=== PATIENT | female | born 1950 | race Caucasian/White ===

== ENCOUNTER 2023-08-21 12:25 | Observation (INO) | payer OTHER ==
--- OUTSIDE RECORDS SUMMARY | 2023-08-21 12:28 | XMS REPORT | Continuity of Care Document ---
:1950 Author Organization [facility] t Address [address] [place] [address] [place] [id number] Care Team Providers Name Role Phone Brian Keller Attending Clinician Unavailable Jacquelyn Larry Attending Clinician Unavailable Brian Keller Admitting Clinician Unavailable Jacquelyn Larry Admitting Clinician Unavailable Payers Payer Name Policy Type Policy Number Effective Date Expiration Date S ource Problems This patient has no known problems. Allergies, Adverse Reactions, Alerts This patient has no known allergies or adverse reactions. Medications This patient has no known medications. Procedures This patient has no known procedures. Encounters Start End Encounter Admission Attending Care Care Encounter Source Date/Time Date/Time Type Type Clinicians Facility Department ID 2023-05-09 2023-05-09 Outpatient ELLIE Keller BRANDEE RUIZ [id number] [facility] 09:06:00 09:06:00 Brian 59 [facility] 2022-05-03 2022-05-03 Outpatient ELLIE Krishna BRANDEE RUIZ [id number] [facility] 12:00:00 12:00:00 Brian 18 [facility] 2021-04-27 2021-04-27 Outpatient ELLIE Keller BRANDEE RUIZ [id number] [facility] 12:36:00 12:36:00 Brian 43 [facility] 2020-04-23 2020-04-23 Outpatient JOESPH Carver [id number] [facility] 12:00:00 12:00:00 Jacquelyn Crawley [facility] Results This patient has no known results.
[2023-08-21 13:10] LABS: Absolute Lymphocytes (CBC) 2.1 K/uL (0.7-4.9); Hematocrit 39.7 % (36.0-45.0); Lymphocytes % 35.5 % (15.3-44.8); MCV 90.6 fL (80-100); MPV 7.4 fL (7.6-11.3); Platelets 231 thou/uL (152-406); RBC Red Blood Cell Count 4.39 M/uL (3.86-4.86)
[2023-08-21] MEDS ORDERED: METOCLOPRAMIDE 10 MG/2mL INJ ONE (13:20)
[2023-08-21] MEDS ORDERED: DIPHENHYDRAMINE 50 MG/ML VIAL ONE (13:20)
[2023-08-21] MEDS ORDERED: NA CHLORIDE 0.9% 1,000 ML ONE (13:20)
[2023-08-21 13:33] LABS: Albumin 3.5 g/dL (3.4-5.0); Bilirubin Total 0.4 mg/dL (0.2-1.0); Protein, Total 7.7 g/dL (6.4-8.2)
[2023-08-21 14:05] LABS: Specific Gravity 1.009 (1.005-1.030); Urine Bilirubin NEGATIVE (Negative); Urine Blood Negative (Negative); Urine Clarity Clear (Clear); Urine Color Colorless (Yellow); Urine Glucose NEGATIVE (Negative); Urine Protein NEGATIVE (Negative); Urine Urobilinogen Normal (Normal)
--- NOTE | 2023-08-21 14:13 | RAD REPORT ---
EXAM DESCRIPTION: CT - Head Brain Wo Cont - 08/21/2023 1:11 pm CLINICAL HISTORY: DIZZINESS COMPARISON: Head angio dated 08/21/2023; Neck Angio dated 08/21/2023 TECHNIQUE: Noncontrast head CT images were obtained without IV contrast. Multiplanar reformats were generated and reviewed. All CT scans are performed using dose optimization technique as appropriate and may include automated exposure control or mA/KV adjustment according to patient size. FINDINGS: No intracranial hemorrhage, mass, or edema. Midline structures are unremarkable. Normal ventricular caliber for age. Han-white matter differentiation is preserved, without evidence of acute infarct. No abnormal extra- axial fluid collections. Mastoid air cells and visualized portions of the paranasal sinuses are clear. No acute bony findings. IMPRESSION: No evidence of an acute intracranial process.
--- NOTE | 2023-08-21 14:20 | RAD REPORT ---
EXAM DESCRIPTION: CT - Head angio - 08/21/2023 1:12 pm CLINICAL HISTORY: DIZZINESS COMPARISON: No comparisons TECHNIQUE: Axial CT angiography images of the head was performed with multiplanar and maximum intens ity projection reconstructions. Images performed following intravenous administration of 100mL Isovue 370. All CT scans are performed using dose optimization technique as appropriate and may include automated exposure control or mA/KV adjustment according to patient size. FINDINGS: No evidence of large vessel occlusion. No evidence of aneurysm or dissection flap is detec adarsh. No flow-limiting stenosis or vascular malformation identified. Antegrade flow is seen in the vertebral arteries. The vertebral arteries are codominant. The visualized dural venous sinuses are grossly patent. IMPRESSION: No evidence of large vessel occlusion or flow-limiting stenosis.
--- NOTE | 2023-08-21 14:22 | RAD REPORT ---
EXAM DESCRIPTION: CT - Neck Angio - 08/21/2023 1:12 pm CLINICAL HISTORY: dizziness COMPARISON: No comparisons TECHNIQUE: Axial CT angiography images of the head was performed with multiplanar and maximum intens ity projection reconstructions. Images performed following intravenous administration of 100mL Isovue 370. All CT scans are performed using dose optimization technique as appropriate and may include automated exposure control or mA/KV adjustment according to patient size. Quantification of carotid stenosis, if any, is performed according to NASCET criteria. FINDINGS: A left aortic arch is identified with normal three vessel configuration of the great vesse ls. No significant flow abnormality is seen of the common carotid bilaterally. No significant stenosis is identified involving the cervical segments of both internal carotid arteri es. Normal flow is seen within both vertebral arteries. IMPRESSION: No significant flow abnormality of the neck vessels is identified. CAROTID STENOSIS REFERENCE USING NASCET CRITERIA: % ICA stenosis = (1 - narrowest ICA diameter/diameter of distal cervical ICA) x 100. Mild - <50% stenosis. Moderate - 50-69% stenosis. Severe - 70-94% stenosis. Near occlusion - 95-99% stenosis. Occluded - 100% stenosis.
--- NOTE | 2023-08-21 15:29 | EDPHYS ---
Physician Documentation [facility] Name: Gissell Rodarte Age: 73 yrs Sex: Female : 1950 Arrival Date: 08/21/2023 Time: 12:25 Bed 16 Private MD: ED Physician Josh Avery HPI: 08/21 12:51 This 73 yrs old Female presents to ER via Ambulatory with complaints of ec2 Dizziness, Headache, Nausea, High Blood Pressure. 12:51 Patient arrives today due to concern for dizziness. Patient reports that she woke up ec2 early this morning and felt unstable on her feet. Patient states that she felt like the room was spinning around her. Patient reports that she felt unstable on her feet and required assistance from her significant other. Patient reports no falls or injuries, no history of stroke. Does have a history of hypertension and hyperlipidemia. Also reports some associated headache with some associated nausea without vomiting.. Historical: - Allergies: 12:45 Amoxicillin; cm10 - PMHx: 12:45 Hypothyroidism; Hypercholesterolemia; Hypertensive disorder; cm10 - Immunization history:: Adult Immunizations up to date. - Social history:: Smoking status: Patient denies any tobacco usage or history of. ROS: 12:51 Constitutional: as per hpi ec2 Exam: 12:51 Constitutional: GEN: NAD Head: atraumatic Eyes: EOMI Ears: External ears are ec2 normal. CV: regular rate LUNGS: no respiratory distress ABD: non-distended SKIN: no evidence of rashes MSK: no evidence of trauma NEURO: moves all extremities equally, cranial nerves II through XII intact, strength intact in all 4 extremities, no pronator drift, gizigj-[id number] appropriate, stable gait. Vital Signs: 12:39 BP 129 / 68; Pulse 70; Resp 16 S; Temp 97.9; Pulse Ox 100% on R/A; Weight 77.11 kg (R); cm10 Height 5 ft. 8 in. (R); 13:00 BP 148 / 70; Pulse 56; Resp 18; Pulse Ox 99% ; ko1 14:15 BP 139 / 60; Pulse 50; Resp 18; Pulse Ox 98% ; ko1 16:51 BP 130 / 66; Pulse 52; Resp 16; Pulse Ox 98% ; ko1 12:39 Body Mass Index 25.85 (77.11 kg, 172.72 cm) cm10 NIH Stroke Scale Scores: 12:48 NIHSS Score: 0 cm10 MDM: 12:45 Patient medically screened. ec2 12:51 ED course: Patient arrives today due to concern for dizziness. Examination remarkable ec2 for neuro intact individual is otherwise in no acute distress. Will obtain lab work, CT scan of the head with CT under the head and neck for further assessment of the patient's complaint. Currently considering vertigo, central and peripheral, electrolyte disturbances, arrhythmia. We will give the patient crystalloid as well as Reglan for her symptoms. . 13:05 ED course: EKG independently reviewed and interpreted by me, shows normal sinus rhythm, ec2 rate of 58, no acute ST segment elevations, nonconcerning intervals.. 14:11 ED course: CBC is reassuring, metabolic with appropriate electrolytes and renal ec2 function, urine is noninfectious appearing. Pending imaging. . 15:09 ED course: CT scan of the head with no acute intracranial abnormality, CT angio of the ec2 head and neck with no evidence of LVO. . 15:28 ED course: On reassessment patient reports improvement in her symptoms and states that ec2 she is more able to ambulate however does feel little bit uneasy. Ultimately my concern will be for posterior stroke, I shared his concern and recommend admission and the patient and family is agreeable. I discussed case with hospitalist, pending admission.. 15:28 Data reviewed: vital signs. ec2 08/21 12:51 Order name: CBC with Diff; Complete Time: 14:10 ec2 08/21 12:51 Order name: CMP; Complete Time: 14:10 ec2 08/21 12:51 Order name: Urinalysis w/ reflexes; Complete Time: 14:10 ec2 08/21 13:28 Order name: CREATININE WHOLE BLOOD; Complete Time: 14:10 EDMS 08/21 12:51 Order name: CT Head Brain wo Cont; Complete Time: 15:09 ec2 08/21 12:51 Order name: CT Head Angio; Complete Time: 15:09 ec2 08/21 12:51 Order name: CT Neck Angio; Complete Time: 15:09 ec2 08/21 12:51 Order name: CXR XRAY ec2 08/21 12:51 Order name: EKG; Complete Time: 12:52 ec2 08/21 13:07 Order name: IV Saline Lock; Complete Time: 13:07 ko1 Administered Medications: 13:34 Drug: metoCLOPramide IVP 10 mg IVP once; over 1 to 2 minutes Route: IVP; Site: right mb9 forearm; 13:38 Drug: NS 0.9% IV 1000 ml IV at 1 bolus Per protocol; 1000 mL bolus Route: IV; Rate: 1 mb9 bolus; Site: right forearm; 13:38 Drug: diphenhydrAMINE IVP 25 mg IVP once Route: IVP; Site: right forearm; mb9 16:39 Drug: Aspirin PO Chewable Tablet 324 mg PO once; 81 mg tablets x 4 Route: PO; ko1 Disposition Summary: 08/21/23 15:29 Hospitalization Ordered Notes: Hospitalization Status: Inpatient Admission ec2 Provider: Vaughn Virk ec2 Condition: Stable ec2 Problem: new ec2 Symptoms: have improved ec2 Bed/Room Type: Standard ec2 Location: Telemetry/MedSurg (Inpatient)(08/21/23 16:13) bd Room Assignment: 203(08/21/23 16:13) Diagnosis - Dizziness ec2 Forms: - Medication Reconciliation Form ec2 - SBAR form ec2 - Leadership Thank You Letter ec2 NIH Stroke Scale - NIH Stroke Score Date: 08/21/2023 Time: 12:48 Total Score = 0 10. Dysarthria (speech clarity - read or repeat words) - 0(Normal) 11. Extinction and Inattention (visual/tactile/auditory/spatial/personal) - 0(No abnormality) 1a. Level of Consciousness (LOC) - 0(Alert) 1b. Level of Consciousness (LOC) (Month \T\ Age) - 0(Both) 1c. LOC Commands (Open \T\ Closes Eyes/Salvager Helper) - 0(Both) 2. Best Gaze (Lateral Gaze Paresis) - 0(Normal) 3. Visual Field Loss - 0(No visual loss) 4. Facial Palsy - 0(Normal) 5a. Left Arm: Motor (10-second hold) - 0(No drift) 5b. Right Arm: Motor (10-second hold) - 0(No drift) 6a. Left Leg: Motor (5-second hold - always test supine) - 0(No drift) 6b. Right Leg: Motor (5-second hold - always test supine) - 0(No drift) 7. Limb Ataxia (finger/nose \T\ heel/valero - test with eyes open) - 0(Absent) 8. Sensory Loss (pinprick arms/legs/face) - 0(Normal) 9. Best Language: Aphasia (description/naming/reading) - 0(No aphasia) Initials: cm10 Signatures: Dispatcher [employer] EDMS Mag Quinn Lee, STRUCTURAL STEEL ENGINEER-C STRUCTURAL STEEL ENGINEER-Cla1 Brittney Ervin, RN RN ko1 Sruthi Gibson RN RN mb9 Taryn Kiser RN RN cm10 Josh Avery MD MD ec2 Corrections: (The following items were deleted from the chart) 13:49 13:49 Patient medically screened. ec2 ec2 15:38 15:29 Telemetry/MedSurg (Inpatient) ec2 bd 15:38 15:29 ec2 bd 16:13 15:38 [facility] ER HOLD bd bd 16:13 15:38 ERHOLD- bd bd
--- NOTE | 2023-08-21 15:29 | ER ---
Nurse's Notes [facility] Name: Gissell Rodarte Age: 73 yrs Sex: Female : 1950 Arrival Date: 08/21/2023 Time: 12:25 Bed 16 Private MD: Diagnosis: Dizziness Presentation: 08/21 12:39 Chief complaint: Patient states: waking up this morning and feeling dizzy, nauseous and cm10 headache. Pt states that she had to have assistance walking. Coronavirus screen: Vaccine status: Patient reports receiving the 2nd dose of the covid vaccine. Client denies travel out of the [place] in the last 14 days. Ebola Screen: Patient denies travel to an Ebola-affected area in the 21 days before illness onset. No symptoms or risks identified at this time. Initial Sepsis Screen: Does the patient meet any 2 criteria? No. Patient's initial sepsis screen is negative. Does the patient have a suspected source of infection? No. Patient's initial sepsis screen is negative. Risk Assessment: Do you want to hurt yourself or someone else? Patient reports no desire to harm self or others. Onset of symptoms was August 21, 2023. 12:39 Method Of Arrival: Ambulatory cm10 12:39 Acuity: SITA 3 cm10 Triage Assessment: 12:46 General: Appears in no apparent distress. comfortable, Behavior is calm, cooperative. cm10 Pain: Complains of pain in head. Neuro: No deficits noted. Meyers Agitation-Sedation Scale (RASS): 0 - Alert and Calm Level of Consciousness is awake, alert, obeys commands, Oriented to person, place, time, situation, Reports dizziness, headache. Cardiovascular: No deficits noted. Patient's skin is warm and dry. Respiratory: No deficits noted. Airway is patent Respiratory effort is even, unlabored, Respiratory pattern is regular, symmetrical. Historical: - Allergies: 12:45 Amoxicillin; cm10 - PMHx: 12:45 Hypothyroidism; Hypercholesterolemia; Hypertensive disorder; cm10 - Immunization history:: Adult Immunizations up to date. - Social history:: Smoking status: Patient denies any tobacco usage or history of. Screenin:47 [facility] ED Fall Risk Assessment (Adult) History of falling in the last 3 months, cm10 including since admission No falls in past 3 months (0 pts) Confusion or Disorientation No (0 pts) Intoxicated or Sedated No (0 pts) Impaired Gait No (0 pts) Mobility Assist Device Used Yes (1 pt) Altered Elimination No (0 pt) Score/Fall Risk Level 0 - 2 = Low Risk Oriented to surroundings, Maintained a safe environment, Hourly rounding (assess needs \T\ fall precautionary measures) done. Abuse screen: Denies threats or abuse. Denies injuries from another. Nutritional screening: No deficits noted. Tuberculosis screening: No symptoms or risk factors identified. 16:02 [place] Swallow Protocol Exclusion Criteria: Exclusion Criteria Result: Proceed Brief iw Cognitive Screen What is your name? Normal, Where are you right now? Normal, What year is it? Normal. Oral Mechanism Examination Facial Symmetry: Normal, Motion: Normal, Lip Closure: Normal, Oral Mechanism Result: Normal. 3 oz Water Swallow Challenge: Pt able to drink all water without stopping, coughing, choking or throat clearing: Yes Result: PASS Notified: Luis Miguel Bobby SHORE MAN-C. Assessment: 12:48 Pain: Complains of pain in head. cm10 13:08 Reassessment: pt taken to CT via wheelchair. mb9 Vital Signs: 12:39 BP 129 / 68; Pulse 70; Resp 16 S; Temp 97.9; Pulse Ox 100% on R/A; Weight 77.11 kg (R); cm10 Height 5 ft. 8 in. (R); 13:00 BP 148 / 70; Pulse 56; Resp 18; Pulse Ox 99% ; ko1 14:15 BP 139 / 60; Pulse 50; Resp 18; Pulse Ox 98% ; ko1 16:51 BP 130 / 66; Pulse 52; Resp 16; Pulse Ox 98% ; ko1 12:39 Body Mass Index 25.85 (77.11 kg, 172.72 cm) cm10 NIH Stroke Scale Scores: 12:48 NIHSS Score: 0 cm10 ED Course: 12:28 Patient arrived in ED. im 12:35 Josh Avery MD is Attending Physician. ec2 12:45 Triage completed. cm10 12:45 Arm band placed on Patient placed in waiting room. cm10 12:48 Patient has correct armband on for positive identification. Bed in low position. Call cm10 light in reach. Provided Education on: ER process and procedures. . 12:49 Brittney Ervin RN is Primary Nurse. ko1 13:07 CMP Sent. ko1 13:07 CBC with Diff Sent. ko1 13:08 EKG done, by ED staff, reviewed by Josh Avery MD. Inserted saline lock: 22 gauge in mb9 right wrist, using aseptic technique. Blood collected. 13:13 CT Head Brain wo Cont In Process Unspecified. EDMS 13:14 CT Head Angio In Process Unspecified. EDMS 13:14 CT Neck Angio In Process Unspecified. EDMS 13:38 Urinalysis w/ reflexes Sent. mb9 15:06 CXR XRAY In Process Unspecified. EDMS 15:29 Vaughn Virk MD is Hospitalizing Provider. ec2 16:51 No provider procedures requiring assistance completed. Patient admitted, IV remains in ko1 place. Administered Medications: 13:34 Drug: metoCLOPramide IVP 10 mg IVP once; over 1 to 2 minutes Route: IVP; Site: right mb9 forearm; 13:38 Drug: NS 0.9% IV 1000 ml IV at 1 bolus Per protocol; 1000 mL bolus Route: IV; Rate: 1 mb9 bolus; Site: right forearm; 13:38 Drug: diphenhydrAMINE IVP 25 mg IVP once Route: IVP; Site: right forearm; mb9 16:39 Drug: Aspirin PO Chewable Tablet 324 mg PO once; 81 mg tablets x 4 Route: PO; ko1 Medication: 12:47 VIS not applicable for this client. cm10 Outcome: 15:29 Decision to Hospitalize by Provider. ec2 16:51 Admitted to Tele accompanied by tech, room 203, with chart, Report called to SCOT Giron ko1 16:51 Condition: stable 16:51 Instructed on the need for admit, 17:14 Patient left the ED. ko1 NIH Stroke Scale - NIH Stroke Score Date: 08/21/2023 Time: 12:48 Total Score = 0 10. Dysarthria (speech clarity - read or repeat words) - 0(Normal) 11. Extinction and Inattention (visual/tactile/auditory/spatial/personal) - 0(No abnormality) 1a. Level of Consciousness (LOC) - 0(Alert) 1b. Level of Consciousness (LOC) (Month \T\ Age) - 0(Both) 1c. LOC Commands (Open \T\ Closes Eyes/Correction Worker) - 0(Both) 2. Best Gaze (Lateral Gaze Paresis) - 0(Normal) 3. Visual Field Loss - 0(No visual loss) 4. Facial Palsy - 0(Normal) 5a. Left Arm: Motor (10-second hold) - 0(No drift) 5b. Right Arm: Motor (10-second hold) - 0(No drift) 6a. Left Leg: Motor (5-second hold - always test supine) - 0(No drift) 6b. Right Leg: Motor (5-second hold - always test supine) - 0(No drift) 7. Limb Ataxia (finger/nose \T\ heel/valero - test with eyes open) - 0(Absent) 8. Sensory Loss (pinprick arms/legs/face) - 0(Normal) 9. Best Language: Aphasia (description/naming/reading) - 0(No aphasia) Initials: cm10 Signatures: Dispatcher [employer] Radha Jones RN RN iw Brittney Ervin RN RN ko1 Sruthi Gibson RN RN mb9 Betty Lambert Clarissa, RN RN cm10 Josh Avery MD MD ec2 Corrections: (The following items were deleted from the chart) 16:02 16:00 [place] Swallow Protocol Exclusion Criteria: Exclusion Criteria Result: iw Proceed Brief Cognitive Screen What is your name? Normal, Where are you right now? Normal, What year is it? Normal. Oral Mechanism Examination Facial Symmetry: Normal, Motion: Normal, Lip Closure: Normal, Oral Mechanism Result: Normal. 3 oz Water Swallow Challenge: Pt able to drink all water without stopping, coughing, choking or throat clearing: Yes Result: PASS Notified: Luis Miguel Bobby SHORE MAN-C ko1
--- NOTE | 2023-08-21 16:14 | P.HP ---
Certification for Inpatient Patient admitted to: Observation With expected LOS: <2 Midnights Patient will require the following post-hospital care: None Practitioner: I am a practitioner with admitting privileges, knowledge of patient current condition, hospital course, and medical plan of care. Services: Services provided to patient in accordance with Admission requirements found in Title 42 Section 412.3 of the Code of Federal Regulations Patient History Date of Service: 08/21/23 Reason for admission: Dizziness History of Present Illness: 73-year-old female with history of hypertension, hypothyroidism, hyperlipidemia presented to the emergency room with chief complaint of headache, dizziness. She reports that she went to bed feeling normal at approximately 2300 on 08/20/2023 and she woke up in the middle of the night to use the restroom, while walking to the bathroom she became very dizzy with unsteady gait nearly following and required assistance getting to the bathroom and back into bed. She reports her symptoms improved after lying back down but she had a persistent headache. When she woke up the morning around 1030 today she was still having mild dizziness/vertigo as well as a persistent headache and felt reason she came to the emergency department. She was evaluated in the emergency department her labs are significant for glucose [address] head negative for acute finding CT head and neck angio both negative for large vessel occlusion. Chest x-ray negative for acute findings. Patient's dizziness/vertigo has apparently resolved but she is still having a mild to moderate headache which is atypical for her. ED provider wishes to admit under observation to rule out CVA. NIH score is currently 0. - Past Medical/Surgical History -: Hypertension -: Hyperlipidemia -: Hypothyroidism -: Hysterectomy -: Hammertoe surgery Psychosocial/ Personal History: Patient lives at home with her , she is deaf, she communicates primarily by lipreading. - Family History Family History: Reviewed- Non-Contributory - Social History Smoking Status: Never smoker Alcohol use: No CD- Drugs: No Caffeine use: Yes Place of Residence: Home Review of Systems 10-point ROS is otherwise unremarkable Neurological: Other (Dizziness, headache) Physical Examination - Physical Exam General: Alert, In no apparent distress, Oriented x3 HEENT: Atraumatic, PERRLA, Mucous membr. moist/pink, EOMI, Sclerae nonicteric Neck: Supple, 2+ carotid pulse no bruit, No LAD, Without JVD or thyroid abnormality Respiratory: Clear to auscultation bilaterally, Normal air movement Cardiovascular: Regular rate/rhythm, Normal S1 S2 Gastrointestinal: Normal bowel sounds, No tenderness Musculoskeletal: No tenderness Integumentary: No rashes Neurological: Normal gait, Normal speech, Normal strength at 5/5 x4 extr, Normal tone, Sensation intact, Cranial nerves 3-12 intact, Normal affect, Other (NIH score 0) - Studies Laboratory Data (last 24 hrs) 08/21/23 08/21/23 13:00 13:00 WBC 5.90 Hgb 13.8 Hct 39.7 Plt Count 231 Sodium 139 Potassium 4.0 BUN 18 Creatinine 0.90 Glucose 152 H Total Bilirubin 0.4 AST 25 ALT 36 Alkaline Phosphatase 70 Assessment and Plan - Plan Assessment: Dizziness/vertigo, headache rule out CVA Hypertension Hyperlipidemia Hypothyroidism Hyperglycemia Plan: Dizziness/vertigo, headache rule out CVA CT head without contrast negative for acute findings, CTA of the head and neck negative for large vessel occlusion. Symptoms have improved although still having headache. Will give aspirin now as well as daily, statin ordered as well as folic acid. Neurology consult, MRI of the brain ordered. Passed swallow screen in ED, NIH score is currently 0. Hypertension Continue home medications allowing for some permissive hypertension in the setting of possible CVA. Hyperlipidemia Continue statin Hypothyroidism Continue home dose thyroid medication. Hyperglycemia Glucose 152, not a known diabetic. Will obtain A1c level for the morning. DVT PPX: Lovenox Code status: Full Discharge Plan: Home Plan to discharge in: 24 Hours - Advance Directives Does patient have a Living Will: No Does patient have a Durable POA for Healthcare: No - Code Status/Comfort Care Code Status Assessed: Yes (Full code) Critical Care: No Time Spent Managing Pts Care (In Minutes): 55
--- NOTE | 2023-08-21 16:36 | RAD REPORT ---
[facility] DES[facility]04 pm CLINICAL HISTORY: stroke w/u COMPARISON: No comparisons TECHNIQUE: Portable AP view of the chest. FINDINGS: The lungs are clear. No pneumothorax or effusion. The cardiomediastinal contours are unre markable. IMPRESSION: No acute cardiopulmonary process.
[2023-08-21] MEDS ORDERED: ASPIRIN 81 MG CHEWABLE TABLET ONE (16:49)
[2023-08-21] MEDS ORDERED: ACETAMINOPHEN 500 MG TAB PO PRN (16:54)
[2023-08-21] MEDS ORDERED: MECLIZINE HCL 12.5 MG TAB PO PRN (16:54)
[2023-08-21] MEDS ORDERED: ONDANSETRON 4 MG/2 ML VIAL IV PRN (16:54)
[2023-08-21] MEDS: NA CHLORIDE 0.9% 1,000 ML IV SCH (17:00)
[2023-08-21] MEDS: ENOXAPARIN 40 MG/0.4 ML SQ SCH (17:26)
[2023-08-21] MEDS ORDERED: ATORVASTATIN 40 MG TAB PO SCH (21:00)
[2023-08-21] MEDS ORDERED: ATORVASTATIN 20 MG TAB PO SCH (21:00)
[2023-08-22 03:44] LABS: Potassium 3.9 mEq/L (3.5-5.1); T4,Total 8.7 ug/dL (4.8-13.9)
[2023-08-22 03:50] LABS: Thyroid Stimulating Hormone 4.93 uIU/mL (0.358-3.740)
[2023-08-22] MEDS: NA CHLORIDE 0.9% 1,000 ML IV SCH (05:22)
--- NOTE | 2023-08-22 08:59 | RAD REPORT ---
EXAM DESCRIPTION: MRI - Brain Wo Cont - 08/22/2023 8:23 am CLINICAL HISTORY: dizziness COMPARISON: No comparisons TECHNIQUE: Sagittal T1-weighted images were obtained along with PD/heavily T2-weighted and T2-FLAIR images. Axial DWI and ADC mapping sequences were also obtained along with coronal heavily T2-weighted images were obtained. FINDINGS: No intracranial hemorrhage, mass or acute infarction. There is no edema or shift of midlin e structures. No extra-axial fluid collections. Signal voids are seen as a normal finding in the ian r intracranial vessels. Minimal periventricular and deep white matter T2/FLAIR hyperintense signal fo ci. Mastoid air cells and paranasal sinuses are clear. IMPRESSION: No acute intracranial abnormality. Specifically, no evidence of acute infarct. Minimal c hronic small vessel ischemic changes.
[2023-08-22] MEDS ORDERED: FOLIC ACID 1 MG TABLET PO SCH (09:00)
[2023-08-22] MEDS ORDERED: ASPIRIN EC 81 MG TAB PO SCH (09:00)
[2023-08-22] MEDS: ENOXAPARIN 40 MG/0.4 ML SQ SCH (09:46)
--- NOTE | 2023-08-22 10:03 | P.DS ---
Admission Date: 08/21/23 Discharge Date: 08/22/23 Disposition: ROUTINE DISCHARGE Discharge Condition: GOOD Reason for Admission: Dizziness Consultations: Neurology Procedures: Chest x-ray 08/21/2023 FINDINGS: The lungs are clear. No pneumothorax or effusion. The cardiomediastinal contours are unremarkable. IMPRESSION: No acute cardiopulmonary process. CT head without contrast 08/21/2023 FINDINGS: No intracranial hemorrhage, mass, or edema. Midline structures are unremarkable. Normal ventricular caliber for age. Han-white matter differentiation is preserved, without evidence of acute infarct. No abnormal extra-axial fluid collections. Mastoid air cells and visualized portions of the paranasal sinuses are clear. No acute bony findings. IMPRESSION: No evidence of an acute intracranial process. CTA of the head 08/21/2023 FINDINGS: No evidence of large vessel occlusion. No evidence of aneurysm or dissection flap is detected. No flow-limiting stenosis or vascular malformation identified. Antegrade flow is seen in the vertebral arteries. The vertebral arteries are codominant. The visualized dural venous sinuses are grossly patent. IMPRESSION: No evidence of large vessel occlusion or flow-limiting stenosis. CTA of the neck 08/21/2023 FINDINGS: A left aortic arch is identified with normal three vessel configuration of the great vessels. No significant flow abnormality is seen of the common carotid bilaterally. No significant stenosis is identified involving the cervical segments of both internal carotid arteries. Normal flow is seen within both vertebral arteries. IMPRESSION: No significant flow abnormality of the neck vessels is identified. MRI of the brain without contrast 08/22/2023 FINDINGS: No intracranial hemorrhage, mass or acute infarction. There is no edema or shift of midline structures. No extra-axial fluid collections. Signal voids are seen as a normal finding in the major intracranial vessels. Minimal periventricular and deep white matter T2/FLAIR hyperintense signal foci. Mastoid air cells and paranasal sinuses are clear. IMPRESSION: No acute intracranial abnormality. Specifically, no evidence of acute infarct. Minimal chronic small vessel ischemic changes. Brief History of Present Illness: 73-year-old female with history of hypertension, hypothyroidism, hyperlipidemia presented to the emergency room with chief complaint of headache, dizziness. She reports that she went to bed feeling normal at approximately 2300 on 08/20/2023 and she woke up in the middle of the night to use the restroom, while walking to the bathroom she became very dizzy with unsteady gait nearly following and required assistance getting to the bathroom and back into bed. She reports her symptoms improved after lying back down but she had a persistent headache. When she woke up the morning around 1030 today she was still having mild dizziness/vertigo as well as a persistent headache and felt reason she came to the emergency department. She was evaluated in the emergency department her labs are significant for glucose [address] head negative for acute finding CT head and neck angio both negative for large vessel occlusion. Chest x-ray negative for acute findings. Patient's dizziness/vertigo has apparently resolved but she is still having a mild to moderate headache which is atypical for her. ED provider wishes to admit under observation to rule out CVA. NIH score is currently 0. Hospital Course: You presented to the hospital with complaints of dizziness/vertigo as well as headache. The dizziness/vertigo had resolved prior to arrival but the headache persisted. You had a CT scan of your head without contrast which was negative for acute findings, CT angiogram of the head and neck were also performed which were negative for large vessel occlusions/other acute findings. Subsequently you had an MRI of your brain without contrast on the morning of 08/22/2023 which did not show findings concerning for CVA/stroke. After further discussion with neurology it was determined the best course of action would be to treat your symptoms as if they were a TIA or mini stroke. You will be given prescriptions for medications including clopidogrel 75 mg once daily to take addition to your daily aspirin 81 mg, Atorvastatin 40 mg to take at night. You will need to follow-up with your primary care doctor and neurologist. If you have any new or worsening neurological symptoms please come to the emergency department for evaluation. Vital Signs/Physical Exam: Temp Pulse Resp BP Pulse Ox 98.0 F 52 15 138/65 98 08/22/23 04:00 08/22/23 04:00 08/22/23 04:00 08/22/23 04:00 08/22/23 04:00 General: Alert, In no apparent distress, Oriented x3 HEENT: Atraumatic, PERRLA, EOMI Neck: Supple, JVD not distended Respiratory: Clear to auscultation bilaterally, Normal air movement Cardiovascular: Regular rate/rhythm, Normal S1 S2 Gastrointestinal: Normal bowel sounds, No tenderness Musculoskeletal: No tenderness Integumentary: No rashes Neurological: Normal speech, Normal tone, Normal affect, Other (NIH score is 0) Lymphatics: No axilla or inguinal lymphadenopathy Laboratory Data at Discharge: WBC 5.90 thou/uL (4.3-10.9) 08/21/23 13:00 Hgb 13.8 g/dL (12.0-15.0) 08/21/23 13:00 Hct 39.7 % (36.0-45.0) 08/21/23 13:00 Plt Count 231 thou/uL (152-406) 08/21/23 13:00 Sodium 142 mEq/L (136-145) 08/22/23 02:40 Potassium 3.9 mEq/L (3.5-5.1) 08/22/23 02:40 BUN 16 mg/dL (7-18) 08/22/23 02:40 Creatinine 0.93 mg/dL (0.55-1.02) 08/22/23 02:40 Glucose 101 mg/dL (74-106) 08/22/23 02:40 Total Bilirubin 0.4 mg/dL (0.2-1.0) 08/21/23 13:00 AST 25 U/L (15-37) 08/21/23 13:00 ALT 36 U/L (13-56) 08/21/23 13:00 Alkaline Phosphatase 70 U/L (45-117) 08/21/23 13:00 Triglycerides 121 mg/dL (<150) 08/22/23 02:40 Cholesterol 122 mg/dL (<200) 08/22/23 02:40 HDL Cholesterol 47 mg/dL (40-60) 08/22/23 02:40 Cholesterol/HDL Ratio 2.60 08/22/23 02:40 Home Medications: Amlodipine Besylate [Norvasc] 5 mg PO BID 08/21/23 Levothyroxine Sodium 25 mcg PO DAILY 08/21/23 Aspirin Chewable [Aspirin Chewable*] 81 mg PO DAILY 30 Days #30 tab.chew 08/22/23 Atorvastatin Calcium [Lipitor] 40 mg PO DAILY 30 Days #30 tab 08/22/23 Clopidogrel Bisulfate [Plavix] 75 mg PO DAILY 30 Days #30 tab 08/22/23 New Medications: Aspirin Chewable [Aspirin Chewable*] 81 mg PO DAILY 30 Days #30 tab.chew Atorvastatin Calcium [Lipitor] 40 mg PO DAILY 30 Days #30 tab Clopidogrel Bisulfate [Plavix] 75 mg PO DAILY 30 Days #30 tab Physician Discharge Instructions: You presented to the hospital with complaints of dizziness/vertigo as well as headache. The dizziness/vertigo had resolved prior to arrival but the headache persisted. You had a CT scan of your head without contrast which was negative for acute findings, CT angiogram of the head and neck were also performed which were negative for large vessel occlusions/other acute findings. Subsequently you had an MRI of your brain without contrast on the morning of 08/22/2023 which did not show findings concerning for CVA/stroke. After further discussion with neurology it was determined the best course of action would be to treat your symptoms as if they were a TIA or mini stroke. You will be given prescriptions for medications including clopidogrel 75 mg once daily to take addition to your daily aspirin 81 mg, Atorvastatin 40 mg to take at night. You will need to follow-up with your primary care doctor and neurologist. If you have any new or worsening neurological symptoms please come to the emergency department for evaluation. Diet: AHA Activity: Ad vashti Followup: Rashawn Barillas MD [ASSOCIATE-ACTIVE - CAN ADMIT] - 1-2 Weeks Brian Keller MD [Primary Care Provider] - 1-2 Weeks Time spent managing pt's care (in minutes): 25
--- NOTE | 2023-08-22 11:58 | EKG ---
Test Date: 2023-08-21 Test Time: 13:02:52 [employer] Specialist: MB MEASUREMENT RESULTS: Intervals: Rate: 58 IA: 164 QRSD: 90 QT: 418 QTc: 410 [place]: P: 68 IA: 164 QRS: -2 T: 49 INTERPRETIVE STATEMENTS: Sinus bradycardia Otherwise normal ECG Compared to ECG 06/24/2019 14:19:22 Ventricular premature complex(es) no longer present Incomplete right bundle-branch block no longer present Electronically Signed On 08-22-23 11:55:46 CDT by Carlin Zamora
--- NOTE | 2023-08-22 14:20 | ECHO ---
HEIGHT: 5 ft 8 in WEIGHT: 169 lb 15.975 oz DATE OF STUDY: 08/22/[address]: Luis Miguel Bobby NP 2-DIMENSIONAL: YES M.MODE: YES DOPPLER: YES COLOR FLOW: YES TDS: PORTABLE: YES DEFINITY: BUBBLE STUDY: DIAGNOSIS: STROKE CARDIAC HISTORY: CATHERIZATION: SURGERY: PROSTHETIC VALVE: PACEMAKER: MEASUREMENTS (cm) DIASTOLIC (NORMALS) SYSTOLIC (NORMALS) IVSd 1.0 (0.6-1.2) LA Diam 3.7 (1.9-4.0) LVEF 66% LVIDd 4.2 (3.5-5.7) LVIDs 2.7 (2.0-3.5) %FS 36% LVPWd 1.0 (0.6-1.2) Ao Diam 2.7 (2.0-3.7) 2 DIMENSIONAL ASSESSMENT: RIGHT ATRIUM: NORMAL LEFT ATRIUM: NORMAL RIGHT VENTRICLE: NORMAL LEFT VENTRICLE: NORMAL TRICUSPID VALVE: MILD TRICUSPID REGURGITATION MITRAL VALVE: MILD MITRAL REGURGITATION PULMONIC VALVE: MILD PULMONIC INSUFFICIENCY AORTIC VALVE: MILD AORTIC INSUFFICIENCY PERICARDIAL EFFUSION: NONE AORTIC ROOT: NORMAL LEFT VENTRICULAR WALL MOTION: NORMAL DOPPLER/COLOR FLOW: SEE BELOW COMMENTS: 1. NORMAL LEFT VENTRICULAR EJECTION FRACTION 55-60% 2. NORMAL WALL MOTION 3. MILD AORTIC REGURGITATION, MITRAL REGURGITATION, TRICUSPID REGURGITATION TECHNOLOGIST: STEPHAN MCGRATH
[2023-08-23 15:11] VITALS: BP 138/65; TEMP 98; O2SAT 98
[2023-08-23 15:12] VITALS: BMI 25.8
== END 2023-08-22 10:46 | disposition home or self-care (01) ==
LOC: ER 12:25 → ERHOLD 16:04 → 2ND 17:00
PROVIDERS: ADMIT Internal Medicine; ATTEND Internal Medicine
DX: R42 Dizziness and giddiness (principal); R51.9 Headache, unspecified; I10 Essential (primary) hypertension; E03.9 Hypothyroidism, unspecified; E78.3 Hyperchylomicronemia; R73.9 Hyperglycemia, unspecified; Z79.890 Hormone replacement therapy; Z90.710 Acquired absence of both cervix and uterus
CPT/HCPCS: 93005; 93306; 85025; 80048; 36415; 80061; 82565; 84436; 84443; 81003; 83036; 84439; 80053; 70450; 70496; 70498; 71045; 70551; 97116; 97161; 96375; 96374; 99285; Q9967; J2765; J1200; J1650 ×2; J7030 ×3; G0378